=== PATIENT | male | born 1950 | race Caucasian/White ===

== ENCOUNTER 2020-04-01 21:37 | Inpatient (IN) | payer MEDICARE, OTHER ==
[2020-04-01] MEDS ORDERED: Sodium Chloride 0.9% 1,000 ML IV ONE (21:56)
--- NOTE | 2020-04-01 22:23 | EDM.PDOC ---
ED HPI GENERAL MEDICAL PROBLEM - General Chief Complaint: Abdominal Pain Stated Complaint: abdominal pain Time Seen by Provider: 04/01/20 22:00 Source of Information: Reports: Patient, EMS History Limitations: Reports: No Limitations - History of Present Illness INITIAL COMMENTS - FREE TEXT/NARRATIVE: 69 YO WM PRESENTS TO ER COMPLAINING OF LOWER ABDOMINAL PAIN WHICH BEGAN THIS AM. PT WAS SEEN IN CLINIC AND WAS SENT TO [facility] FOR CT ABD/PELVIS. CT REVEALED PROSTATITIS AND RENAL CYST. GALLBLADDER, APPENDIX AND BOWEL WERE ALL WNL. PT WAS FOUND TO HAVE AN ELEVATED WBC'S ON LABS WHICH WERE DONE IN THE CLINIC. PT REPORTS DYSURIA WITH URINARY FREQUENCY AND LOW BACK PAIN. PT DENIES FEVER/CHILLS, NO NAUSEA/VOMITING. PT HAD A COVID TEST IN CLINIC WHICH WAS NEGATIVE. Onset: Today Duration: Day(s): (1) Location: Reports: Abdomen Quality: Reports: Ache Severity: Mild Improves with: Reports: None Worsens with: Reports: None Associated Symptoms: Reports: Fever/Chills Abdomen Pain Score (Numeric/FACES): 10 - Related Data Allergies Allergy/AdvReac Type Severity Reaction Status Date / Time bromfenac Allergy Cannot Verified 04/01/20 22:02 Remember minocycline Allergy Cannot Verified 04/01/20 22:02 Remember Social & Family History - Tobacco Use Tobacco Use Status *Q: Never Tobacco User - Recreational Drug Use Recreational Drug Use: No ED ROS GENERAL - Review of Systems Review Of Systems: See Below Constitutional: Reports: Fever, Chills, Malaise Respiratory: Reports: Cough Cardiovascular: Reports: No Symptoms Endocrine: Reports: No Symptoms GI/Abdominal: Reports: Abdominal Pain : Reports: Dysuria, Frequency Musculoskeletal: Reports: No Symptoms Skin: Reports: No Symptoms Neurological: Reports: No Symptoms ED EXAM, GI/ABD - Physical Exam Exam: See Below Exam Limited By: No Limitations General Appearance: Alert, WD/WN, No Apparent Distress Respiratory/Chest: No Respiratory Distress, Lungs Clear, Normal Breath Sounds, No Accessory Muscle Use, Chest Non-Tender Cardiovascular: Normal Peripheral Pulses, Regular Rate, Rhythm, No Edema, No Gallop, No JVD, No Murmur, No Rub GI/Abdominal Exam: Normal Bowel Sounds, Soft, No Organomegaly, No Distention, No Abnormal Bruit, No Mass, Pelvis Stable, Tender (SUPRAPUBIC) Back Exam: Full Range of Motion, CVA Tenderness (L), CVA Tenderness (R) Extremities: Normal Inspection, Normal Range of Motion, Non-Tender, Normal Capillary Refill, No Pedal Edema Neurological: Alert, Oriented, CN II-XII Intact, Normal Cognition, Normal Gait, No Motor/Sensory Deficits Psychiatric: Normal Affect, Normal Mood Skin Exam: Warm, Dry, Intact, Normal Color, No Rash Lymphatic: No Adenopathy Course - Vital Signs Last Recorded V/S: Last Vital Signs Temp 100.0 F 04/01/20 21:49 Pulse 102 H 04/01/20 22:35 Resp 14 04/01/20 22:35 BP 125/83 04/01/20 22:35 Pulse Ox 94 L 04/01/20 22:35 - Orders/Labs/Meds Orders: Active Orders 24 hr Category Date Time Status Chest 2V [CR] Stat Exams 04/01/20 22:26 Ordered CORONAVIRUS COVID-19 RAPID [MOLEC] Stat Lab 04/01/20 22:40 Ordered CULTURE BLOOD [BC] Stat Lab 04/01/20 22:26 Ordered CULTURE BLOOD [BC] Stat Lab 04/01/20 22:26 Ordered UA W/MICROSCOPIC [URIN] Stat Lab 04/01/20 22:23 Results Sodium Chloride 0.9% [Normal Saline] 1,000 ml Med 04/01/20 21:56 Active IV .BOLUS Blood Culture x2 Reflex Set [OM.PC] Stat Oth 04/01/20 22:26 Ordered Medication Orders Sodium Chloride (Normal Saline) 1,000 mls @ 999 mls/hr IV .BOLUS ONE Stop: 04/01/20 22:56 Last Admin: 04/01/20 22:13 Dose: 999 mls/hr Documented by: AYLEEN Labs: Laboratory Tests 04/01/20 04/01/20 04/01/20 Range/Units 22:05 22:05 22:05 WBC 24.88 H (5.00-10.00) 10^3/uL RBC 4.63 (4.50-6.00) 10^6/uL Hgb 14.4 (13.0-17.0) g/dL Hct 43.0 (40.0-52.0) % MCV 92.9 H (82.0-92.0) fL MCH 31.1 H (27.0-31.0) pg MCHC 33.5 (32.0-36.0) g/dL RDW 13.9 (11.5-14.5) % Plt Count 244 (150-400) 10^3/uL MPV 9.0 (7.4-10.4) fL Immature Gran % (Auto) 0.4 (0.0-5.0) % Neut % (Auto) 85.4 H (50.0-70.0) % Lymph % (Auto) 5.1 L (20.0-40.0) % [place] % (Auto) 8.9 H (2.0-8.0) % Eos % (Auto) 0.0 L (1.0-3.0) % Baso % (Auto) 0.2 (0.0-1.0) % Neut # (Auto) 21.27 H (2.50-7.00) 10^3/uL Lymph # (Auto) 1.27 (1.00-4.00) 10^3/uL [place] # (Auto) 2.21 H (0.10-0.80) 10^3/uL Eos # (Auto) 0.00 L (0.10-0.30) 10^3/uL Baso # (Auto) 0.04 (0.00-0.10) 10^3/uL Immature Gran # (Auto) 0.09 (0.00-0.50) 10^3/uL Sodium 137 (136-145) mmol/L Potassium 4.5 (3.5-5.1) mmol/L Chloride 103 (98-107) mmol/L Carbon Dioxide 24.8 (21.0-32.0) mmol/L Anion Gap 13.7 (5-15) mmol/L BUN 17 (7-18) mg/dL Creatinine 0.94 (0.51-1.17) mg/dL Est Cr Clr Drug Dosing 83.70 mL/min Estimated GFR (MDRD) > 60 mL/min Glucose 130 (70-140) mg/dL Lactic Acid 1.8 (0.4-2.0) mmol/L Calcium 10.5 H (8.7-10.3) mg/dL Total Bilirubin 1.1 H (0.2-1.0) mg/dL AST 21 (15-37) U/L ALT 28 (14-63) U/L Alkaline Phosphatase 108 (46-116) U/L Total Protein 7.3 (6.4-8.2) g/dL Albumin 3.79 (3.40-5.00) g/dL Lipase 84 (73-393) U/L Urine Color (YELLOW) Urine Appearance (CLEAR) Urine pH (5.0-9.0) Ur Specific [place] (1.005-1.030) Urine Protein (NEGATIVE) mg/dL Urine Glucose (UA) (NEGATIVE) mg/dL Urine Ketones (NEGATIVE) mg/dL Urine Occult Blood (NEGATIVE) Urine Nitrite (NEGATIVE) Urine Bilirubin (NEGATIVE) Urine Urobilinogen (0.2-1.0) E.U./dL Ur Leukocyte Esterase (NEGATIVE) 04/01/20 Range/Units 22:23 WBC (5.00-10.00) 10^3/uL RBC (4.50-6.00) 10^6/uL Hgb (13.0-17.0) g/dL Hct (40.0-52.0) % MCV (82.0-92.0) fL MCH (27.0-31.0) pg MCHC (32.0-36.0) g/dL RDW (11.5-14.5) % Plt Count (150-400) 10^3/uL MPV (7.4-10.4) fL Immature Gran % (Auto) (0.0-5.0) % Neut % (Auto) (50.0-70.0) % Lymph % (Auto) (20.0-40.0) % [place] % (Auto) (2.0-8.0) % Eos % (Auto) (1.0-3.0) % Baso % (Auto) (0.0-1.0) % Neut # (Auto) (2.50-7.00) 10^3/uL Lymph # (Auto) (1.00-4.00) 10^3/uL [place] # (Auto) (0.10-0.80) 10^3/uL Eos # (Auto) (0.10-0.30) 10^3/uL Baso # (Auto) (0.00-0.10) 10^3/uL Immature Gran # (Auto) (0.00-0.50) 10^3/uL Sodium (136-145) mmol/L Potassium (3.5-5.1) mmol/L Chloride (98-107) mmol/L Carbon Dioxide (21.0-32.0) mmol/L Anion Gap (5-15) mmol/L BUN (7-18) mg/dL Creatinine (0.51-1.17) mg/dL Est Cr Clr Drug Dosing mL/min Estimated GFR (MDRD) mL/min Glucose (70-140) mg/dL Lactic Acid (0.4-2.0) mmol/L Calcium (8.7-10.3) mg/dL Total Bilirubin (0.2-1.0) mg/dL AST (15-37) U/L ALT (14-63) U/L Alkaline Phosphatase (46-116) U/L Total Protein (6.4-8.2) g/dL Albumin (3.40-5.00) g/dL Lipase (73-393) U/L Urine Color Yellow (YELLOW) Urine Appearance Cloudy H (CLEAR) Urine pH 5.5 (5.0-9.0) Ur Specific [place] 1.015 (1.005-1.030) Urine Protein 30 H (NEGATIVE) mg/dL Urine Glucose (UA) Negative (NEGATIVE) mg/dL Urine Ketones 40 H (NEGATIVE) mg/dL Urine Occult Blood Moderate H (NEGATIVE) Urine Nitrite Positive H (NEGATIVE) Urine Bilirubin Negative (NEGATIVE) Urine Urobilinogen 0.2 (0.2-1.0) E.U./dL Ur Leukocyte Esterase Small H (NEGATIVE) Meds: Medications Generic Name Dose Route Start Last Admin Trade Name Freq PRN Reason Stop Dose Admin Sodium Chloride 1,000 mls @ 999 mls/hr 04/01/20 21:56 04/01/20 22:13 Normal Saline IV 04/01/20 22:56 999 mls/hr .BOLUS ONE Administration Discontinued Medications Generic Name Dose Route Start Last Admin Trade Name Freq PRN Reason Stop Dose Admin Ceftriaxone Sodium 1 gm 04/01/20 22:34 Rocephin IVPUSH 04/01/20 22:35 ONETIME ONE Departure - Departure Time of Disposition: 23:06 Disposition: Admitted As Inpatient 68 Condition: Fair Clinical Impression: Pyelonephritis - Discharge Information Forms: ED Department Discharge Sepsis Event Note (ED) - Evaluation Sepsis Screening Result: Possible Sepsis Risk - Focused Exam Vital Signs: Vital Signs Temp Pulse Resp BP Pulse Ox 04/01/20 22:35 102 H 14 125/83 94 L 04/01/20 22:29 100 18 112/75 94 L 04/01/20 21:49 100.0 F 107 H 18 119/72 94 L - My Orders Last 24 Hours: My Active Orders 04/01/20 21:56 Sodium Chloride 0.9% [Normal Saline] 1,000 ml IV .BOLUS 04/01/20 22:23 UA W/MICROSCOPIC [URIN] Stat 04/01/20 22:26 Chest 2V [CR] Stat CULTURE BLOOD [BC] Stat CULTURE BLOOD [BC] Stat Blood Culture x2 Reflex Set [OM.PC] Stat 04/01/20 22:40 CORONAVIRUS COVID-19 RAPID [MOLEC] Stat - Assessment/Plan Last 24 Hours: My Active Orders 04/01/20 21:56 Sodium Chloride 0.9% [Normal Saline] 1,000 ml IV .BOLUS 04/01/20 22:23 UA W/MICROSCOPIC [URIN] Stat 04/01/20 22:26 Chest 2V [CR] Stat CULTURE BLOOD [BC] Stat CULTURE BLOOD [BC] Stat Blood Culture x2 Reflex Set [OM.PC] Stat 04/01/20 22:40 CORONAVIRUS COVID-19 RAPID [MOLEC] Stat Assessment:: 1. PYELONEPHRITIS 2. LEUKOCYTOSIS 3. FEVER 4. PROSTATITIS Plan: 1. ADMIT TO MEDICINE- DR SOLA BARRERA- ADMISSION ORDERS PER MEDICINE 2. URINE/BLOOD CULTURES 3. ROCEPHIN 1G IV QD 4. REPEAT LABS IN AM
[2020-04-01] MEDS ORDERED: cefTRIAXone 1 GM Vial IVPUSH ONE (22:34)
[2020-04-01 22:36] LABS: ANION GAP 13.7 mmol/L (5-15); CHLORIDE,CL 103 mmol/L (98-107); SODIUM,NA 137 mmol/L (136-145)
[2020-04-01] MEDS ORDERED: Sodium Chloride 0.9% 10 ML Syringe FLUSH PRN (23:07)
[2020-04-01] MEDS ORDERED: Acetaminophen 500 MG Tab PO ONE (23:12)
[2020-04-02] MEDS: Ondansetron 4 MG/2 ML SDV IVPUSH PRN ×2 (02:47→18:34)
[2020-04-02 07:49] LABS: ANION GAP 14.2 mmol/L (5-15); CHLORIDE,CL 105 mmol/L (98-107); SODIUM,NA 138 mmol/L (136-145)
--- NOTE | 2020-04-02 08:02 | CR ---
[id number] RAD/RAD Chest PA And Lateral EXAM: RAD Chest PA And Lateral CLINICAL DATA: FEVER COMPARISON: NO PREVIOUS SIMILAR EXAM IS AVAILABLE. FINDINGS: The lungs are clear Neurologic stimulators are seen The cardiac silhouette is slightly prominent IMPRESSION: NO PNEUMONIA Edy Nails MD 04/02/20 0801 Thank you for allowing us to participate in the care of your patient.
[2020-04-02] MEDS: Sodium Chloride 0.9% 1,000 ML IV SCH ×3 (08:12→16:27)
[2020-04-02] MEDS ORDERED: cefTRIAXone 1 GM Vial IVPUSH SCH (09:00)
--- NOTE | 2020-04-02 10:20 | PCM.HP.2 ---
H&P History of Present Illness - General Date of Service: 04/02/20 Admit Problem/Dx: Admission Diagnosis/Problem Admission Diagnosis/Problem Pyelonephritis Abdomen Pain Score (Numeric/FACES): 10 - Related Data Allergies/Adverse Reactions: Allergies Allergy/AdvReac Type Severity Reaction Status Date / Time bromfenac Allergy Cannot Verified 04/01/20 22:02 Remember minocycline Allergy Cannot Verified 04/01/20 22:02 Remember Home Medications: Home Meds Hydrocortisone [Hydrocortisone 2.5% Crm] 1 applic TOP BID 04/02/20 [History] Ibuprofen [Advil] 200 mg PO Q4H PRN 04/02/20 [History] Multivitamin 1 tab PO DAILY 04/02/20 [History] bisacodyL [Dulcolax] 10 mg PO BEDTIME 04/02/20 [History] polyethylene glycoL 3350 [MiraLAX] 17 gm PO DAILY 04/02/20 [History] Past Medical History - Past Surgical History Neurological Surgical History: Reports: Other (See Below) Other Neurological Surgeries/Procedures: Implant X2 to help with tremors Social & Family History - Tobacco Use Tobacco Use Status *Q: Never Tobacco User - Recreational Drug Use Recreational Drug Use: No H&P Review of Systems - Review of Systems: Review Of Systems: See Below General: Reports: Fever, Chills, Weakness. Denies: Decreased Appetite HEENT: Reports: No Symptoms Pulmonary: Reports: No Symptoms Cardiovascular: Reports: No Symptoms Gastrointestinal: Reports: Constipation. Denies: Abdominal Pain, Diarrhea, Distension, Nausea Genitourinary: Reports: Dysuria, Frequency, Burning, Pain, Hematuria. Denies: Urgency, Incontinence Musculoskeletal: Reports: No Symptoms Skin: Reports: Dryness Neurological: Reports: Pre-Existing Deficit. Denies: Confusion Hematologic/Lymphatic: Reports: No Symptoms Immunologic: Reports: No Symptoms Exam - Exam Exam: See Below - Vital Signs Vital Signs: Last Vital Signs Temp 98.7 F 04/02/20 06:40 Pulse 105 H 04/02/20 06:40 Resp 16 04/02/20 06:40 BP 106/62 04/02/20 06:40 Pulse Ox 94 L 04/02/20 06:40 Weight: 213 lb 5 oz - Exam General: Alert, Oriented, Cooperative HEENT: No: Mucosa Moist & [place] Lungs: Clear to Auscultation, Normal Respiratory Effort Cardiovascular: Regular Rate, Regular Rhythm GI/Abdominal Exam: Normal Bowel Sounds. No: Guarding, Rigid, Rebound (Male) Exam: Other (Palpation of prostate during digital rectal exam tender painful). No: Normal Prostate Rectal (Males) Exam: Normal Rectal Tone, Tenderness. No: Prostate Normal, Fecal Impaction, Prostate Nodule Back Exam: CVA Tenderness (R) (Mild right-sided CVA). No: CVA Tenderness (L) Extremities: No: Pedal Edema Skin: Dry, Other (Left face however ) Neurological: Cranial Nerves Intact, Reflexes Equal Bilateral Neuro Extensive - Mental Status: Alert, Oriented x3, Normal Mood/Affect, Other (Slight cognitive impairment at times however chronic) Psychiatric: Alert, Normal Affect - Patient Data Lab Results Last 24 hrs: Laboratory Results - last 24 hr 04/01/20 04/01/20 04/01/20 Range/Units 22:05 22:05 22:05 WBC 24.88 H (5.00-10.00) 10^3/uL RBC 4.63 (4.50-6.00) 10^6/uL Hgb 14.4 (13.0-17.0) g/dL Hct 43.0 (40.0-52.0) % MCV 92.9 H (82.0-92.0) fL MCH 31.1 H (27.0-31.0) pg MCHC 33.5 (32.0-36.0) g/dL RDW 13.9 (11.5-14.5) % Plt Count 244 (150-400) 10^3/uL MPV 9.0 (7.4-10.4) fL Immature Gran % (Auto) 0.4 (0.0-5.0) % Neut % (Auto) 85.4 H (50.0-70.0) % Lymph % (Auto) 5.1 L (20.0-40.0) % [place] % (Auto) 8.9 H (2.0-8.0) % Eos % (Auto) 0.0 L (1.0-3.0) % Baso % (Auto) 0.2 (0.0-1.0) % Neut # (Auto) 21.27 H (2.50-7.00) 10^3/uL Lymph # (Auto) 1.27 (1.00-4.00) 10^3/uL [place] # (Auto) 2.21 H (0.10-0.80) 10^3/uL Eos # (Auto) 0.00 L (0.10-0.30) 10^3/uL Baso # (Auto) 0.04 (0.00-0.10) 10^3/uL Immature Gran # (Auto) 0.09 (0.00-0.50) 10^3/uL Add Manual Diff Neutrophils % (Manual) (50-70) % Band Neutrophils % (4-12) % Lymphocytes % (Manual) (20-40) % Monocytes % (Manual) (2-8) % Absolute Neutrophils Lymphocytes # (Manual) Monocytes # (Manual) Sodium 137 (136-145) mmol/L Potassium 4.5 (3.5-5.1) mmol/L Chloride 103 (98-107) mmol/L Carbon Dioxide 24.8 (21.0-32.0) mmol/L Anion Gap 13.7 (5-15) mmol/L BUN 17 (7-18) mg/dL Creatinine 0.94 (0.51-1.17) mg/dL Est Cr Clr Drug Dosing 83.70 mL/min Estimated GFR (MDRD) > 60 mL/min Glucose 130 (70-140) mg/dL Lactic Acid 1.8 (0.4-2.0) mmol/L Calcium 10.5 H (8.7-10.3) mg/dL Total Bilirubin 1.1 H (0.2-1.0) mg/dL AST 21 (15-37) U/L ALT 28 (14-63) U/L Alkaline Phosphatase 108 (46-116) U/L Total Protein 7.3 (6.4-8.2) g/dL Albumin 3.79 (3.40-5.00) g/dL Lipase 84 (73-393) U/L Specimen Type Urine Color (YELLOW) Urine Appearance (CLEAR) Urine pH (5.0-9.0) Ur Specific [place] (1.005-1.030) Urine Protein (NEGATIVE) mg/dL Urine Glucose (UA) (NEGATIVE) mg/dL Urine Ketones (NEGATIVE) mg/dL Urine Occult Blood (NEGATIVE) Urine Nitrite (NEGATIVE) Urine Bilirubin (NEGATIVE) Urine Urobilinogen (0.2-1.0) E.U./dL Ur Leukocyte Esterase (NEGATIVE) Urine RBC (0-5) /HPF Urine WBC (0-5) /HPF Ur Epithelial Cells /LPF Other Crystals /HPF Urine Bacteria (NONE TO FEW) /HPF SARS CoV-2 RNA Rapid ROXANA (NEGATIVE) 04/01/20 04/01/20 04/02/20 Range/Units 22:23 22:42 07:25 WBC 29.65 H (5.00-10.00) 10^3/uL RBC 4.14 L (4.50-6.00) 10^6/uL Hgb 12.9 L D (13.0-17.0) g/dL Hct 38.9 L (40.0-52.0) % MCV 94.0 H (82.0-92.0) fL MCH 31.2 H (27.0-31.0) pg MCHC 33.2 (32.0-36.0) g/dL RDW 14.2 (11.5-14.5) % Plt Count 234 (150-400) 10^3/uL MPV 9.9 (7.4-10.4) fL Immature Gran % (Auto) (0.0-5.0) % Neut % (Auto) (50.0-70.0) % Lymph % (Auto) (20.0-40.0) % [place] % (Auto) (2.0-8.0) % Eos % (Auto) (1.0-3.0) % Baso % (Auto) (0.0-1.0) % Neut # (Auto) (2.50-7.00) 10^3/uL Lymph # (Auto) (1.00-4.00) 10^3/uL [place] # (Auto) (0.10-0.80) 10^3/uL Eos # (Auto) (0.10-0.30) 10^3/uL Baso # (Auto) (0.00-0.10) 10^3/uL Immature Gran # (Auto) (0.00-0.50) 10^3/uL Add Manual Diff Yes Neutrophils % (Manual) 92 H (50-70) % Band Neutrophils % 3 L (4-12) % Lymphocytes % (Manual) 2 L (20-40) % Monocytes % (Manual) 3 (2-8) % Absolute Neutrophils 28.1675 Lymphocytes # (Manual) 0.5930 Monocytes # (Manual) 0.8895 Sodium (136-145) mmol/L Potassium (3.5-5.1) mmol/L Chloride (98-107) mmol/L Carbon Dioxide (21.0-32.0) mmol/L Anion Gap (5-15) mmol/L BUN (7-18) mg/dL Creatinine (0.51-1.17) mg/dL Est Cr Clr Drug Dosing mL/min Estimated GFR (MDRD) mL/min Glucose (70-140) mg/dL Lactic Acid (0.4-2.0) mmol/L Calcium (8.7-10.3) mg/dL Total Bilirubin (0.2-1.0) mg/dL AST (15-37) U/L ALT (14-63) U/L Alkaline Phosphatase (46-116) U/L Total Protein (6.4-8.2) g/dL Albumin (3.40-5.00) g/dL Lipase (73-393) U/L Specimen Type Urinvoid Urine Color Yellow (YELLOW) Urine Appearance Cloudy H (CLEAR) Urine pH 5.5 (5.0-9.0) Ur Specific [place] 1.015 (1.005-1.030) Urine Protein 30 H (NEGATIVE) mg/dL Urine Glucose (UA) Negative (NEGATIVE) mg/dL Urine Ketones 40 H (NEGATIVE) mg/dL Urine Occult Blood Moderate H (NEGATIVE) Urine Nitrite Positive H (NEGATIVE) Urine Bilirubin Negative (NEGATIVE) Urine Urobilinogen 0.2 (0.2-1.0) E.U./dL Ur Leukocyte Esterase Small H (NEGATIVE) Urine RBC 0-5 (0-5) /HPF Urine WBC >100 H (0-5) /HPF Ur Epithelial Cells Few /LPF Other Crystals See note /HPF Urine Bacteria Few (NONE TO FEW) /HPF SARS CoV-2 RNA Rapid ROXANA Negative (NEGATIVE) 04/02/20 Range/Units 07:25 WBC (5.00-10.00) 10^3/uL RBC (4.50-6.00) 10^6/uL Hgb (13.0-17.0) g/dL Hct (40.0-52.0) % MCV (82.0-92.0) fL MCH (27.0-31.0) pg MCHC (32.0-36.0) g/dL RDW (11.5-14.5) % Plt Count (150-400) 10^3/uL MPV (7.4-10.4) fL Immature Gran % (Auto) (0.0-5.0) % Neut % (Auto) (50.0-70.0) % Lymph % (Auto) (20.0-40.0) % [place] % (Auto) (2.0-8.0) % Eos % (Auto) (1.0-3.0) % Baso % (Auto) (0.0-1.0) % Neut # (Auto) (2.50-7.00) 10^3/uL Lymph # (Auto) (1.00-4.00) 10^3/uL [place] # (Auto) (0.10-0.80) 10^3/uL Eos # (Auto) (0.10-0.30) 10^3/uL Baso # (Auto) (0.00-0.10) 10^3/uL Immature Gran # (Auto) (0.00-0.50) 10^3/uL Add Manual Diff Neutrophils % (Manual) (50-70) % Band Neutrophils % (4-12) % Lymphocytes % (Manual) (20-40) % Monocytes % (Manual) (2-8) % Absolute Neutrophils Lymphocytes # (Manual) Monocytes # (Manual) Sodium 138 (136-145) mmol/L Potassium 4.0 (3.5-5.1) mmol/L Chloride 105 (98-107) mmol/L Carbon Dioxide 22.8 (21.0-32.0) mmol/L Anion Gap 14.2 (5-15) mmol/L BUN 16 (7-18) mg/dL Creatinine 0.94 (0.51-1.17) mg/dL Est Cr Clr Drug Dosing 83.70 mL/min Estimated GFR (MDRD) > 60 mL/min Glucose 122 (70-140) mg/dL Lactic Acid (0.4-2.0) mmol/L Calcium 9.6 (8.7-10.3) mg/dL Total Bilirubin (0.2-1.0) mg/dL AST (15-37) U/L ALT (14-63) U/L Alkaline Phosphatase (46-116) U/L Total Protein (6.4-8.2) g/dL Albumin (3.40-5.00) g/dL Lipase (73-393) U/L Specimen Type Urine Color (YELLOW) Urine Appearance (CLEAR) Urine pH (5.0-9.0) Ur Specific [place] (1.005-1.030) Urine Protein (NEGATIVE) mg/dL Urine Glucose (UA) (NEGATIVE) mg/dL Urine Ketones (NEGATIVE) mg/dL Urine Occult Blood (NEGATIVE) Urine Nitrite (NEGATIVE) Urine Bilirubin (NEGATIVE) Urine Urobilinogen (0.2-1.0) E.U./dL Ur Leukocyte Esterase (NEGATIVE) Urine RBC (0-5) /HPF Urine WBC (0-5) /HPF Ur Epithelial Cells /LPF Other Crystals /HPF Urine Bacteria (NONE TO FEW) /HPF SARS CoV-2 RNA Rapid ROXANA (NEGATIVE) Result Diagrams: 04/02/20 07:25 04/02/20 07:25 Sepsis Event Note - Evaluation Sepsis Screening Result: Sepsis Risk - Focused Exam Vital Signs: Vital Signs Temp Temp Temp Pulse Resp BP BP 04/02/20 06:40 98.7 F 105 H 16 04/02/20 02:50 98.9 F 120 H 20 141/72 H 04/02/20 00:06 98.7 F 119 H 20 92/59 L 04/01/20 23:49 98.7 F 04/01/20 23:31 155 H 19 111/82 04/01/20 23:22 134 H 22 H 124/66 04/01/20 23:19 102.3 F H 04/01/20 23:13 102.3 F H 100.4 F 04/01/20 23:01 148 H 36 H 94/60 04/01/20 22:35 102 H 14 125/83 04/01/20 22:29 100 18 112/75 BP Pulse Ox Pulse Ox 04/02/20 06:40 106/62 94 L 94 L 04/02/20 02:50 96 04/02/20 00:06 95 04/01/20 23:49 04/01/20 23:31 04/01/20 23:22 95 04/01/20 23:19 04/01/20 23:13 04/01/20 23:01 04/01/20 22:35 94 L 04/01/20 22:29 94 L Problem List Initiated/Reviewed/Updated: Yes Orders Last 24hrs: Active Orders 24 hr Category Date Time Status Patient Status [ADT] Routine ADT 04/01/20 23:07 Active Oxygen Therapy [RC] .PRN Care 04/01/20 23:07 Active Peripheral IV Care [RC] . DIRECTED Care 04/01/20 23:09 Active Up With Assistance [RC] ASDIRECTED Care 04/01/20 23:07 Active VTE/DVT Education [RC] DAILY Care 04/01/20 23:07 Active Vital Signs [RC] 03,07,11,15,19,23 Care 04/01/20 23:07 Active Heart Healthy Diet [DIET] Diet 04/02/20 Breakfast Active CULTURE BLOOD [BC] Stat Lab 04/01/20 22:35 Received CULTURE BLOOD [BC] Stat Lab 04/01/20 22:45 Received CULTURE URINE [RM] Stat Lab 04/01/20 22:23 Received Acetaminophen [TylenoL] Med 04/01/20 23:07 Active 650 mg PO Q4H PRN Ondansetron [Zofran] Med 04/02/20 02:40 Active 4 mg IVPUSH Q6H PRN Sodium Chloride 0.9% [Normal Saline] 1,000 ml Med 04/01/20 23:15 Active IV ASDIRECTED Sodium Chloride 0.9% [Saline Flush] Med 04/01/20 23:07 Active 10 ml FLUSH Q8HR PRN cefTRIAXone [Rocephin] Med 04/02/20 09:00 Active 1 gm IVPUSH Q24H Peripheral IV Insertion Adult [OM.PC] Routine Oth 04/01/20 23:07 Ordered Resuscitation Status Routine Resus Stat 04/01/20 23:07 Ordered Medication Orders Acetaminophen (Tylenol) 650 mg PO Q4H PRN PRN Reason: Pain (Mild 1-3)/fever Ceftriaxone Sodium (Rocephin) 1 gm IVPUSH Q24H [facility] Last Admin: 04/02/20 08:20 Dose: 1 gm Documented by: RANDY Sodium Chloride (Normal Saline) 1,000 mls @ 125 mls/hr IV ASDIRECTED [facility] Last Admin: 04/02/20 08:12 Dose: 125 mls/hr Documented by: Infusion: 04/02/20 08:00 Dose: 125 mls/hr Documented by: Admin: 04/02/20 00:00 Dose: 125 mls/hr Documented by: AVILA Ondansetron HCl (Zofran) 4 mg IVPUSH Q6H PRN PRN Reason: Nausea/Vomiting Last Admin: 04/02/20 02:47 Dose: 4 mg Documented by: AVILA Sodium Chloride (Saline Flush) 10 ml FLUSH Q8HR PRN PRN Reason: keep vein open Assessment/Plan Comment:: History of present illness Mr Almanza is a 69-year-old male gentleman that was admitted through the ED due to lower abdominal pain. Started having abdominal pain the morning of admission and had been evaluated in an [facility] as he had been having problems with constipation about a month prior with a last BM that was noted last week, patient was sent to [facility] for abdominal pelvis CT which revealed prostatitis and renal cyst. In the clinic setting when he was seen he had no abdominal pain and he had taken a stool softener along with a laxative. It was noted for him to have a white count of 21.7 with 90% neutrophils however electrolytes BUN/creatinine were all normal. 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 Neg for hydronephrosis and hydroureter --Rocephin in the ED --Lactic acid normal Hospital course to date 04/02/2020; increasing WBC to approximately 30,000 with increasing neutrophilia, digital rectal exam this morning very tender prostate, perineal pain, and cloudy urine noted. Antibiotics were changed from Rocephin to ciprofloxacin as doubtful pyelonephritis more likely prostatitis in nature. Lactate this morning on rounds demonstrate sepsis with lactic acid of 2.3, electrolytes normal, febrile. qSOFA 1/ Primary hospital problems --Prostatitis, acute bacterial with LUTS --Sepsis Chronic problems Essential tremors Learning/Development deficits Disposition/overall plan --Change to inpatient status as the need for ongoing antibiotics and close monitoring due to sepsis and prostatitis --Change antibiotics from Rocephin to ciprofloxacin --IV fluids today 125 cc/h --Labs in am --PPx, LMWH --Monitor closely for complications of his infection such as shock. Notify on- call provider stat for trending low blood pressure with MAP <68, turn mental status, confusion, increasing in respiratory rate, hypoxia, dizziness, tachycardia. Low threshold for norepinephrine
[2020-04-02] MEDS: Acetaminophen 325 MG Tab PO PRN ×2 (11:28→18:38)
[2020-04-02] MEDS: Ciprofloxacin in D5W 400 MG in Premix Bag 1 BAG IV SCH ×4 (12:41→23:22)
[2020-04-02] MEDS: Enoxaparin 40 MG/0.4 ML Syringe SUBCUT SCH (14:26)
[2020-04-03] MEDS ORDERED: Haloperidol Lactate 5 MG/ML SDV IM ONE (00:06)
[2020-04-03] MEDS: Sodium Chloride 0.9% 1,000 ML IV SCH ×3 (01:56→17:42)
[2020-04-03] MEDS: Acetaminophen 325 MG Tab PO PRN (03:54)
[2020-04-03 07:40] LABS: ANION GAP 11.2 mmol/L (5-15); CHLORIDE,CL 105 mmol/L (98-107); SODIUM,NA 138 mmol/L (136-145)
--- NOTE | 2020-04-03 11:20 | PCM.PN ---
- General Info Date of Service: 04/03/20 Functional Status: Reports: Pain Controlled, Tolerating Diet, Ambulating - Review of Systems General: Denies: Fever (No fever past 12 hours) HEENT: Reports: No Symptoms Pulmonary: Reports: No Symptoms Cardiovascular: Reports: No Symptoms Gastrointestinal: Denies: Abdominal Pain, Constipation, Diarrhea, Nausea, Vomiting Genitourinary: Denies: Dysuria (No longer dysuria ), Incontinence, Hematuria, Retention, Flank Pain Musculoskeletal: Reports: No Symptoms Skin: Reports: No Symptoms Neurological: Denies: Confusion, Gait Disturbance Psychiatric: Denies: Agitation - Patient Data Vitals - Most Recent: Last Vital Signs Temp 98.3 F 04/03/20 06:45 Pulse 85 04/03/20 06:45 Resp 16 04/03/20 06:45 BP 106/64 04/03/20 06:45 Pulse Ox 93 L 04/03/20 10:30 Weight - Most Recent: 213 lb 5 oz I&O - Last 24 Hours: Intake & Output 04/02/20 04/03/20 04/03/20 22:59 06:59 14:59 Intake Total 1219 1492 Balance 1219 1492 Lab Results Last 24 Hours: Laboratory Results - last 24 hr 04/02/20 04/03/20 04/03/20 Range/Units 11:25 07:15 07:15 WBC 27.86 H (5.00-10.00) 10^3/uL RBC 3.86 L (4.50-6.00) 10^6/uL Hgb 12.1 L (13.0-17.0) g/dL Hct 36.4 L (40.0-52.0) % MCV 94.3 H (82.0-92.0) fL MCH 31.3 H (27.0-31.0) pg MCHC 33.2 (32.0-36.0) g/dL RDW 14.3 (11.5-14.5) % Plt Count 198 (150-400) 10^3/uL MPV 9.4 (7.4-10.4) fL Add Manual Diff Yes Neutrophils % (Manual) 90 H (50-70) % Band Neutrophils % 3 L (4-12) % Lymphocytes % (Manual) 2 L (20-40) % Monocytes % (Manual) 5 (2-8) % Absolute Neutrophils 25.9098 Lymphocytes # (Manual) 0.5572 Monocytes # (Manual) 1.3930 Sodium (136-145) mmol/L Potassium (3.5-5.1) mmol/L Chloride (98-107) mmol/L Carbon Dioxide (21.0-32.0) mmol/L Anion Gap (5-15) mmol/L BUN (7-18) mg/dL Creatinine (0.51-1.17) mg/dL Est Cr Clr Drug Dosing mL/min Estimated GFR (MDRD) mL/min Glucose (70-140) mg/dL Lactic Acid 2.3 H 1.8 (0.4-2.0) mmol/L Calcium (8.7-10.3) mg/dL 04/03/20 Range/Units 07:15 WBC (5.00-10.00) 10^3/uL RBC (4.50-6.00) 10^6/uL Hgb (13.0-17.0) g/dL Hct (40.0-52.0) % MCV (82.0-92.0) fL MCH (27.0-31.0) pg MCHC (32.0-36.0) g/dL RDW (11.5-14.5) % Plt Count (150-400) 10^3/uL MPV (7.4-10.4) fL Add Manual Diff Neutrophils % (Manual) (50-70) % Band Neutrophils % (4-12) % Lymphocytes % (Manual) (20-40) % Monocytes % (Manual) (2-8) % Absolute Neutrophils Lymphocytes # (Manual) Monocytes # (Manual) Sodium 138 (136-145) mmol/L Potassium 4.5 (3.5-5.1) mmol/L Chloride 105 (98-107) mmol/L Carbon Dioxide 26.3 (21.0-32.0) mmol/L Anion Gap 11.2 (5-15) mmol/L BUN 16 (7-18) mg/dL Creatinine 0.83 (0.51-1.17) mg/dL Est Cr Clr Drug Dosing 94.79 mL/min Estimated GFR (MDRD) > 60 mL/min Glucose 115 (70-140) mg/dL Lactic Acid (0.4-2.0) mmol/L Calcium 10.0 (8.7-10.3) mg/dL Nacho Results Last 24 Hours: Microbiology 04/01/20 22:35 Aerobic Blood Culture - Preliminary Blood - Arm, Right NO GROWTH AFTER 1 DAY Anaerobic Blood Culture - Preliminary NO GROWTH AFTER 1 DAY 04/01/20 22:45 Aerobic Blood Culture - Preliminary Blood - Arm, Left NO GROWTH AFTER 1 DAY Anaerobic Blood Culture - Preliminary NO GROWTH AFTER 1 DAY 04/01/20 22:23 Urine Culture - Final Urine, Voided Med Orders - Current: Current Medications Acetaminophen (Tylenol) 650 mg PO Q4H PRN PRN Reason: Pain (Mild 1-3)/fever Last Admin: 04/03/20 03:54 Dose: 650 mg Documented by: Enoxaparin Sodium (Lovenox) 40 mg SUBCUT Q24H ON LICENSE OF [facility] Last Admin: 04/02/20 14:26 Dose: 40 mg Documented by: Sodium Chloride (Normal Saline) 1,000 mls @ 125 mls/hr IV ASDIRECTED ON LICENSE OF [facility] Last Admin: 04/03/20 01:56 Dose: 125 mls/hr Documented by: Ciprofloxacin/Dextrose 400 mg/ (Premix) 200 mls @ 200 mls/hr IV Q12H ON LICENSE OF [facility] Last Admin: 04/02/20 23:22 Dose: 200 mls/hr Documented by: Ondansetron HCl (Zofran) 4 mg IVPUSH Q6H PRN PRN Reason: Nausea/Vomiting Last Admin: 04/02/20 18:34 Dose: 4 mg Documented by: Sodium Chloride (Saline Flush) 10 ml FLUSH Q8HR PRN PRN Reason: keep vein open Discontinued Medications Acetaminophen (Tylenol Extra Strength) 1,000 mg PO ONETIME ONE Stop: 04/01/20 23:13 Last Admin: 04/01/20 23:19 Dose: 1,000 mg Documented by: Ceftriaxone Sodium (Rocephin) 1 gm IVPUSH ONETIME ONE Stop: 04/01/20 22:35 Last Admin: 04/01/20 22:58 Dose: 1 gm Documented by: Ceftriaxone Sodium (Rocephin) 1 gm IVPUSH Q24H ON LICENSE OF [facility] Last Admin: 04/02/20 08:20 Dose: 1 gm Documented by: Sodium Chloride (Normal Saline) 1,000 mls @ 999 mls/hr IV .BOLUS ONE Stop: 04/01/20 22:56 Last Admin: 04/01/20 22:13 Dose: 999 mls/hr Documented by: - Exam General: Alert, Oriented, Cooperative Neck: Supple Lungs: Clear to Auscultation, Normal Respiratory Effort Cardiovascular: Regular Rate, Regular Rhythm GI/Abdominal Exam: Normal Bowel Sounds, Soft Extremities: No Pedal Edema Peripheral Pulses: 2+: Radial (L), 3+: Radial (R) Skin: Warm, Dry, Intact, Other (Face tanned) Neurological: No New Focal Deficit Psy/Mental Status: Alert, Normal Affect, Normal Mood Sepsis Event Note - Evaluation Sepsis Screening Result: Sepsis Risk - Focused Exam Vital Signs: Vital Signs Temp Pulse Resp BP Pulse Ox Pulse Ox 04/03/20 10:30 93 L 04/03/20 06:45 98.3 F 85 16 106/64 93 L 04/03/20 03:00 99.1 F 95 20 109/49 L 95 - Problem List Review Problem List Initiated/Reviewed/Updated: Yes - My Orders Last 24 Hours: My Active Orders 04/02/20 11:25 Blood Culture x2 Reflex Set [OM.PC] Stat 04/02/20 11:35 CULTURE BLOOD [BC] Stat 04/02/20 12:00 CULTURE BLOOD [BC] Stat Ciprofloxacin in D5W [Cipro in D5W 400 MG/200 ML] 400 mg Premix Bag 1 bag IV Q12H 04/02/20 14:00 Enoxaparin [Lovenox] 40 mg SUBCUT Q24H - Plan Plan:: History of present illness Mr Almanza is a 69-year-old male gentleman that was admitted through the ED due to lower abdominal pain. Started having abdominal pain the morning of admission and had been evaluated in an [facility] clinic as he had been having problems with constipation about a month prior with a last BM that was noted last week, patient was sent to [facility] for abdominal pelvis CT which revealed prostatitis and renal cyst. In the clinic setting when he was seen he had no abdominal pain and he had taken a stool softener along with a laxative. It was noted for him to have a white count of 21.7 with 90% neutrophils however electrolytes BUN/creatinine were all normal. 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 Neg for hydronephrosis and hydroureter --Rocephin in the ED --Lactic acid normal Hospital course to date 04/02/2020; increasing WBC to approximately 30,000 with increasing neutrophilia, digital rectal exam this morning very tender prostate, perineal pain, and cloudy urine noted. Antibiotics were changed from Rocephin to ciprofloxacin as doubtful pyelonephritis more likely prostatitis in nature. Lactate this morning on rounds demonstrate sepsis with lactic acid of 2.3, electrolytes normal, febrile. qSOFA 1/3 04/03/2020; feeling much better today no flank pain no dysuria, afebrile past 12 hours, overall appearance much improved. Yesterday changed from Rocephin to ciprofloxacin due to positive prostatitis on digital rectal exam--highly suspect source, ?ecoli, no more bothersome LUTS, no growth on BC, urine culture pending Primary hospital problems --Prostatitis, acute bacterial with improving LUTS --Sepsis Chronic problems Essential tremors Learning/Development deficits Disposition/overall plan --[facility] due to infection with high risks of septic shock, the need for ongoing antibiotics and close monitoring. --IV fluids 125 cc/h --Labs in am --PPx, LMWH --Monitor closely for complications of his infection such as shock. Notify on- call provider stat for trending low blood pressure with MAP <68, changes in mental status, confusion, increasing in respiratory rate, hypoxia, dizziness, tachycardia. Low threshold for norepinephrine if needed.
[2020-04-03] MEDS: Ciprofloxacin in D5W 400 MG in Premix Bag 1 BAG IV SCH ×4 (13:02→23:12)
[2020-04-03] MEDS: Enoxaparin 40 MG/0.4 ML Syringe SUBCUT SCH (14:26)
[2020-04-03] MEDS ORDERED: Melatonin 3 MG Tab PO PRN (21:22)
[2020-04-03] MEDS ORDERED: LORazepam 2 MG/ML SDV IVPUSH ONE (22:47)
[2020-04-04] MEDS ORDERED: Haloperidol Lactate 5 MG/ML SDV IM ONE ×3 (00:06→06:20)
[2020-04-04] MEDS ORDERED: Haloperidol Lactate 5 MG/ML SDV ONE (06:22)
[2020-04-04 07:49] LABS: ANION GAP 11.4 mmol/L (5-15); CHLORIDE,CL 104 mmol/L (98-107); SODIUM,NA 140 mmol/L (136-145)
[2020-04-04 09:15] LABS: BARBITURATE SCREEN,URINE NEGATIVE (NEGATIVE); BENZODIAZEPINES SCREEN,URINE POSITIVE (NEGATIVE); TCA SCREEN,URINE NEGATIVE (NEGATIVE); THC SCREEN,URINE 50 NG/ML NEGATIVE (NEGATIVE)
[2020-04-04] MEDS ORDERED: Folic Acid 1 MG Tab PO SCH (10:45)
[2020-04-04] MEDS ORDERED: chlordiazePOXIDE 25 MG Cap PO SCH (10:45)
[2020-04-04] MEDS ORDERED: Haloperidol 0.5 MG Tab PO PRN (11:43)
[2020-04-04] MEDS: Dextrose 5%-0.45% NaCl 1,000 ML IV SCH (12:18)
[2020-04-04] MEDS: Ciprofloxacin in D5W 400 MG in Premix Bag 1 BAG IV SCH ×2 (12:22)
[2020-04-04] MEDS: Nicotine 7 MG/24 Hr Patch TRDERM SCH (12:23)
--- NOTE | 2020-04-04 13:42 | PCM.PN ---
- General Info Date of Service: 04/04/20 Functional Status: Reports: Pain Controlled, Tolerating Diet, Urinating - Review of Systems HEENT: Denies: Headaches Pulmonary: Denies: Shortness of Breath, Cough Cardiovascular: Denies: Chest Pain Gastrointestinal: Denies: Abdominal Pain, Constipation, Diarrhea, Nausea, Vomiting Genitourinary: Reports: No Symptoms Neurological: Reports: Tremors, Difficulty Walking, Gait Disturbance. Denies: Confusion, Dizziness, Headache Psychiatric: Denies: Confusion, Depression, Anxiety, Agitation, Hallucinations - Patient Data Vitals - Most Recent: Last Vital Signs Temp 98.8 F 04/04/20 11:00 Pulse 82 04/04/20 11:00 Resp 18 04/04/20 11:00 BP 115/69 04/04/20 11:00 Pulse Ox 93 L 04/04/20 11:00 Weight - Most Recent: 213 lb 5 oz I&O - Last 24 Hours: Intake & Output 04/03/20 04/04/20 04/04/20 22:59 06:59 14:59 Intake Total 1679 300 Balance 1679 300 Lab Results Last 24 Hours: Laboratory Results - last 24 hr 04/04/20 04/04/20 04/04/20 Range/Units 07:20 07:20 08:53 WBC 17.63 H D (5.00-10.00) 10^3/uL RBC 3.90 L (4.50-6.00) 10^6/uL Hgb 12.1 L (13.0-17.0) g/dL Hct 36.5 L (40.0-52.0) % MCV 93.6 H (82.0-92.0) fL MCH 31.0 (27.0-31.0) pg MCHC 33.2 (32.0-36.0) g/dL RDW 13.9 (11.5-14.5) % Plt Count 221 (150-400) 10^3/uL MPV 9.5 (7.4-10.4) fL Immature Gran % (Auto) 0.7 (0.0-5.0) % Neut % (Auto) 85.7 H (50.0-70.0) % Lymph % (Auto) 7.4 L (20.0-40.0) % Avery % (Auto) 5.8 (2.0-8.0) % Eos % (Auto) 0.3 L (1.0-3.0) % Baso % (Auto) 0.1 (0.0-1.0) % Neut # (Auto) 15.10 H (2.50-7.00) 10^3/uL Lymph # (Auto) 1.30 (1.00-4.00) 10^3/uL Avery # (Auto) 1.03 H (0.10-0.80) 10^3/uL Eos # (Auto) 0.06 L (0.10-0.30) 10^3/uL Baso # (Auto) 0.02 (0.00-0.10) 10^3/uL Immature Gran # (Auto) 0.12 (0.00-0.50) 10^3/uL Sodium 140 (136-145) mmol/L Potassium 3.9 (3.5-5.1) mmol/L Chloride 104 (98-107) mmol/L Carbon Dioxide 28.5 (21.0-32.0) mmol/L Anion Gap 11.4 (5-15) mmol/L BUN 11 (7-18) mg/dL Creatinine 0.77 (0.51-1.17) mg/dL Est Cr Clr Drug Dosing 102.18 mL/min Estimated GFR (MDRD) > 60 mL/min Glucose 106 (70-140) mg/dL Calcium 10.0 (8.7-10.3) mg/dL Total Bilirubin 0.8 (0.2-1.0) mg/dL AST 59 H (15-37) U/L ALT 42 (14-63) U/L Alkaline Phosphatase 78 (46-116) U/L Total Protein 6.5 (6.4-8.2) g/dL Albumin 2.67 L (3.40-5.00) g/dL Specimen Type Urinvoid Urine Color Yellow (YELLOW) Urine Appearance Slightly cloudy H (CLEAR) Urine pH 5.0 (5.0-9.0) Ur Specific [place] 1.020 (1.005-1.030) Urine Protein Negative (NEGATIVE) mg/dL Urine Glucose (UA) Negative (NEGATIVE) mg/dL Urine Ketones Negative (NEGATIVE) mg/dL Urine Occult Blood Small H (NEGATIVE) Urine Nitrite Negative (NEGATIVE) Urine Bilirubin Negative (NEGATIVE) Urine Urobilinogen 0.2 (0.2-1.0) E.U./dL Ur Leukocyte Esterase Negative (NEGATIVE) Urine RBC 0-5 (0-5) /HPF Urine WBC 20-30 H (0-5) /HPF Ur Epithelial Cells Few /LPF Urine Bacteria Few (NONE TO FEW) /HPF Urine Opiates Screen (NEGATIVE) Ur Oxycodone Screen (NEGATIVE) Urine Methadone Screen (NEGATIVE) Ur Propoxyphene Screen (NEGATIVE) Ur Barbiturates Screen (NEGATIVE) Ur Tricyclics Screen (NEGATIVE) Ur Phencyclidine Scrn (NEGATIVE) Ur Amphetamine Screen (NEGATIVE) U Methamphetamines Scrn (NEGATIVE) U Benzodiazepines Scrn (NEGATIVE) U Cocaine Metab Screen (NEGATIVE) U Marijuana (THC) Screen (NEGATIVE) 04/04/20 Range/Units 08:53 WBC (5.00-10.00) 10^3/uL RBC (4.50-6.00) 10^6/uL Hgb (13.0-17.0) g/dL Hct (40.0-52.0) % MCV (82.0-92.0) fL MCH (27.0-31.0) pg MCHC (32.0-36.0) g/dL RDW (11.5-14.5) % Plt Count (150-400) 10^3/uL MPV (7.4-10.4) fL Immature Gran % (Auto) (0.0-5.0) % Neut % (Auto) (50.0-70.0) % Lymph % (Auto) (20.0-40.0) % Avery % (Auto) (2.0-8.0) % Eos % (Auto) (1.0-3.0) % Baso % (Auto) (0.0-1.0) % Neut # (Auto) (2.50-7.00) 10^3/uL Lymph # (Auto) (1.00-4.00) 10^3/uL Avery # (Auto) (0.10-0.80) 10^3/uL Eos # (Auto) (0.10-0.30) 10^3/uL Baso # (Auto) (0.00-0.10) 10^3/uL Immature Gran # (Auto) (0.00-0.50) 10^3/uL Sodium (136-145) mmol/L Potassium (3.5-5.1) mmol/L Chloride (98-107) mmol/L Carbon Dioxide (21.0-32.0) mmol/L Anion Gap (5-15) mmol/L BUN (7-18) mg/dL Creatinine (0.51-1.17) mg/dL Est Cr Clr Drug Dosing mL/min Estimated GFR (MDRD) mL/min Glucose (70-140) mg/dL Calcium (8.7-10.3) mg/dL Total Bilirubin (0.2-1.0) mg/dL AST (15-37) U/L ALT (14-63) U/L Alkaline Phosphatase (46-116) U/L Total Protein (6.4-8.2) g/dL Albumin (3.40-5.00) g/dL Specimen Type Urine Color (YELLOW) Urine Appearance (CLEAR) Urine pH (5.0-9.0) Ur Specific [place] (1.005-1.030) Urine Protein (NEGATIVE) mg/dL Urine Glucose (UA) (NEGATIVE) mg/dL Urine Ketones (NEGATIVE) mg/dL Urine Occult Blood (NEGATIVE) Urine Nitrite (NEGATIVE) Urine Bilirubin (NEGATIVE) Urine Urobilinogen (0.2-1.0) E.U./dL Ur Leukocyte Esterase (NEGATIVE) Urine RBC (0-5) /HPF Urine WBC (0-5) /HPF Ur Epithelial Cells /LPF Urine Bacteria (NONE TO FEW) /HPF Urine Opiates Screen Negative (NEGATIVE) Ur Oxycodone Screen Negative (NEGATIVE) Urine Methadone Screen Negative (NEGATIVE) Ur Propoxyphene Screen Negative (NEGATIVE) Ur Barbiturates Screen Negative (NEGATIVE) Ur Tricyclics Screen Negative (NEGATIVE) Ur Phencyclidine Scrn Negative (NEGATIVE) Ur Amphetamine Screen Negative (NEGATIVE) U Methamphetamines Scrn Negative (NEGATIVE) U Benzodiazepines Scrn Positive H (NEGATIVE) U Cocaine Metab Screen Negative (NEGATIVE) U Marijuana (THC) Screen Negative (NEGATIVE) Nacho Results Last 24 Hours: Microbiology 04/01/20 22:23 Bacterial ID and Susceptibility - Final Urine Escherichia Coli 04/02/20 12:00 Aerobic Blood Culture - Preliminary Blood - Venous - Lab Draw NO GROWTH AFTER 2 DAYS Anaerobic Blood Culture - Preliminary NO GROWTH AFTER 2 DAYS 04/02/20 11:35 Aerobic Blood Culture - Preliminary Blood - Venous NO GROWTH AFTER 2 DAYS Anaerobic Blood Culture - Preliminary NO GROWTH AFTER 2 DAYS 04/01/20 22:35 Aerobic Blood Culture - Preliminary Blood - Arm, Right NO GROWTH AFTER 2 DAYS Anaerobic Blood Culture - Preliminary NO GROWTH AFTER 2 DAYS 04/01/20 22:45 Aerobic Blood Culture - Preliminary Blood - Arm, Left NO GROWTH AFTER 2 DAYS Anaerobic Blood Culture - Preliminary NO GROWTH AFTER 2 DAYS Med Orders - Current: Current Medications Acetaminophen (Tylenol) 650 mg PO Q4H PRN PRN Reason: Pain (Mild 1-3)/fever Last Admin: 04/03/20 03:54 Dose: 650 mg Documented by: Enoxaparin Sodium (Lovenox) 40 mg SUBCUT Q24H [facility] Last Admin: 04/03/20 14:26 Dose: 40 mg Documented by: Haloperidol (Haldol) 1 mg PO Q6H PRN PRN Reason: Agitation Ciprofloxacin/Dextrose 400 mg/ (Premix) 200 mls @ 200 mls/hr IV Q12H [facility] Last Admin: 04/04/20 12:22 Dose: 200 mls/hr Documented by: Dextrose/Sodium Chloride (Dextrose 5%-1/2 Ns) 1,000 mls @ 75 mls/hr IV ASDIRECTED [facility] Last Admin: 04/04/20 12:18 Dose: 75 mls/hr Documented by: Melatonin (Melatonin) 3 mg PO BEDTIME [facility] Nicotine (Habitrol) 7 mg TRDERM DAILY [facility] Last Admin: 04/04/20 12:23 Dose: Not Given Documented by: Sodium Chloride (Saline Flush) 10 ml FLUSH Q8HR PRN PRN Reason: keep vein open Discontinued Medications Acetaminophen (Tylenol Extra Strength) 1,000 mg PO ONETIME ONE Stop: 04/01/20 23:13 Last Admin: 04/01/20 23:19 Dose: 1,000 mg Documented by: Ceftriaxone Sodium (Rocephin) 1 gm IVPUSH ONETIME ONE Stop: 04/01/20 22:35 Last Admin: 04/01/20 22:58 Dose: 1 gm Documented by: Ceftriaxone Sodium (Rocephin) 1 gm IVPUSH Q24H [facility] Last Admin: 04/02/20 08:20 Dose: 1 gm Documented by: Chlordiazepoxide HCl (Librium) 50 mg PO Q6H [facility] Folic Acid (Folic Acid) 1 mg PO DAILY [facility] Haloperidol Lactate (Haldol) 2.5 mg IM ONETIME ONE Stop: 04/03/20 00:07 Last Admin: 04/04/20 00:09 Dose: Not Given Documented by: Haloperidol Lactate (Haldol) 2.5 mg IM ONETIME ONE Stop: 04/04/20 00:07 Last Admin: 04/04/20 00:12 Dose: 2.5 mg Documented by: Haloperidol Lactate (Haldol) 2.5 mg IM ONETIME ONE Stop: 04/04/20 00:51 Last Admin: 04/04/20 00:51 Dose: 2.5 mg Documented by: Haloperidol Lactate (Haldol) 5 mg IM ONETIME ONE Stop: 04/04/20 06:21 Last Admin: 04/04/20 06:30 Dose: 5 mg Documented by: Haloperidol Lactate (Haldol) Confirm Administered Dose 5 mg .ROUTE .STK-MED ONE Stop: 04/04/20 06:23 Last Admin: 04/04/20 06:43 Dose: Not Given Documented by: Sodium Chloride (Normal Saline) 1,000 mls @ 999 mls/hr IV .BOLUS ONE Stop: 04/01/20 22:56 Last Admin: 04/01/20 22:13 Dose: 999 mls/hr Documented by: Sodium Chloride (Normal Saline) 1,000 mls @ 125 mls/hr IV ASDIRECTED [facility] Last Admin: 04/03/20 17:42 Dose: 125 mls/hr Documented by: Lorazepam (Ativan) 0.25 mg IVPUSH ONETIME ONE Stop: 04/03/20 22:48 Last Admin: 04/03/20 23:08 Dose: 0.25 mg Documented by: Melatonin (Melatonin) 3 mg PO BEDTIME PRN PRN Reason: Insomnia Last Admin: 04/03/20 23:08 Dose: 3 mg Documented by: Ondansetron HCl (Zofran) 4 mg IVPUSH Q6H PRN PRN Reason: Nausea/Vomiting Last Admin: 04/02/20 18:34 Dose: 4 mg Documented by: Thiamine HCl (Vitamin B-1) 100 mg PO BEDTIME [facility] - Exam Quality Assessment: DVT Prophylaxis (Lovenox 40 mg SQ daily). No: Supplemental Oxygen, Urine Catheter General: Alert, Oriented (to self only), Cooperative, No Acute Distress Lungs: Clear to Auscultation, Normal Respiratory Effort Cardiovascular: Regular Rate, Regular Rhythm, No Murmurs GI/Abdominal Exam: Normal Bowel Sounds, Soft, Non-Tender, No Distention Extremities: No Pedal Edema Skin: Warm, Dry, Intact Neurological: Normal Speech, Other (tremors of upper extremities) Psy/Mental Status: Alert, Agitated Sepsis Event Note - Evaluation Sepsis Screening Result: No Definite Risk - Focused Exam Vital Signs: Vital Signs Temp Pulse Resp BP Pulse Ox 04/04/20 11:00 98.8 F 82 18 115/69 93 L 04/04/20 06:45 96 20 121/72 93 L 04/04/20 03:04 99.1 F 90 20 117/68 93 L - Problem List Review Problem List Initiated/Reviewed/Updated: Yes - My Orders Last 24 Hours: My Active Orders 04/04/20 06:39 CIWAA Assessment [RC] Q4H 04/04/20 10:45 Dextrose 5%-0.45% NaCl [Dextrose 5%-1/2 NS] 1,000 ml IV ASDIRECTED Nicotine [Habitrol] 7 mg TRDERM DAILY 04/04/20 11:43 haloperidoL [Haldol] 1 mg PO Q6H PRN 04/04/20 21:00 Melatonin 3 mg PO BEDTIME 04/05/20 05:11 BMP [BASIC METABOLIC PANEL,BMP] [CHEM] AM CBC WITH AUTO DIFF [HEME] AM - Plan Plan:: HPI summary: This is a 69 yoM who was admitted through the ED d/t lower abdominal pain. He was seen at an [facility] that morning d/t having constipation issues for the past month. He was noted to have a WBC 21.7 w/left shift. 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 Clinic provider was unable to reach patient and he subsequently presented to the ED with dysuria, urinary frequency, and flank pain. ED course: WBC 29.7 w/92% neutrophils UA positive for nitrites, small leukocyte esterase, few bacteria, >100 WBCs BMP unremarkable Rocephin 1 gm IV x 1 NS bolus BC x 2 Urine culture Hospital course: 04/02/2020: Increasing WBC to approximately 30,000 with increasing neutrophilia. Digital rectal exam done this morning with very tender prostate, perineal pain, and cloudy urine noted. Antibiotics were changed from Rocephin to ciprofloxacin as doubtful pyelonephritis more likely prostatitis in nature. Lactate this morning on rounds demonstrates sepsis with lactic acid of 2.3, electrolytes normal, febrile. qSOFA 1/3. 04/03/2020: Feeling much better today; no flank pain, no dysuria, afebrile past 12 hours, overall appearance much improved. No growth on BC, urine culture pending. 04/04/20: Multiple calls overnight d/t acute delirium and agitation/aggression. He was given melatonin 3 mg po and ativan 0.25 mg IV x 1 w/o improvement. He then was given Haldol 2.5 mg IM x 2 around midnight. By 3 am patient finally resting. Awoke at 6 am and continued to be belligerent to nursing staff and required 1:1 supervision. Order given for Haldol 5 mg IM x 1 now with some improvement noted during morning rounds. Brother at bedside and the other brother on the phone who confirm no chronic alcohol use by patient and brought in deep brain stimulator remote. Patient cooperative during provider assessment and oriented to self only. VS: T 98.8F HR 82 RR 18 BP 115/69 O2 sat 93%. WBC 17.6 with 86% neutrophils, Hgb 12.1, electrolytes wnl, AST 59, UA few bacteria and 20-30 WBCs, urine tox positive for benzos only d/t prior one time ativan use in hospital. UC positive for Ecoli, which is sensitive to Cipro. BC x 4 prelim no growth. Hospitalization problems and plan: # Prostatitis, acute # Ecoli UTI # Acute delirium # Sepsis, resolved # 2 cm lesion of the lateral cortex of the left kidney - Continue Cipro 400 mg IV q12h - D51/2NS at 75 mL/hr - Try nonpharmacologic options such as redirecting, etc prior to haldol use for agitation - Haldol 1 mg q6h po prn - Melatonin 3 mg at HS Chronic, stable conditions: # Essential tremor. Deep brain stimulator remote at bedside. Brothers confirm he uses this during the day, but turns off at night. 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 Follows with Dr. Arita, neurologist at [facility]. Last seen 08/2018. # Appendicular, speech, and gait ataxia. # Developmental learning disability. # Osteoarthrosis. # Tobacco dependence. Nicotine 7 mg transdermal patch applied. Hospitalization details: # FEN: IVF at 75 ml/hr, electrolytes wnl, Heart Healthy Diet. # PPX: Lovenox. # Code status: Full Code. # Emergency contact: Devonte, brother. # Disposition: Will continue patient in inpatient status to monitor his infection and delirium. Continue IV antibiotic and IVFs. Labs in AM. Possible discharge home in the AM pending clinical course.
[2020-04-04] MEDS: Enoxaparin 40 MG/0.4 ML Syringe SUBCUT SCH (15:54)
[2020-04-04] MEDS ORDERED: Thiamine 100 MG Tab PO SCH (21:00)
[2020-04-04] MEDS ORDERED: Melatonin 3 MG Tab PO SCH (21:00)
[2020-04-05] MEDS: Ciprofloxacin in D5W 400 MG in Premix Bag 1 BAG IV SCH ×2 (00:17)
[2020-04-05] MEDS: Dextrose 5%-0.45% NaCl 1,000 ML IV SCH (02:51)
[2020-04-05] MEDS: Acetaminophen 325 MG Tab PO PRN (05:41)
[2020-04-05 07:50] LABS: CHLORIDE,CL 106 mmol/L (98-107); SODIUM,NA 141 mmol/L (136-145)
[2020-04-05] MEDS: Nicotine 7 MG/24 Hr Patch TRDERM SCH (09:55)
--- NOTE | 2020-04-05 10:45 | PCM.DCSUM1 ---
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 Deep brain stimulator. 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 Follows with Dr. Arita, neurologist at [facility]. Last seen 08/2018. # Appendicular, speech, and gait ataxia. # Developmental learning disability. # Osteoarthrosis. # Tobacco dependence. Consultations: None Procedures: None Hospital course: HPI summary: This is a 69 yoM who was admitted through the ED d/t lower abdominal pain. He was seen at an [facility] that morning d/t having constipation issues for the past month. He was noted to have a WBC 21.7 w/left shift. 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 Clinic provider was unable to reach patient and he subsequently presented to the ED with dysuria, urinary frequency, and flank pain. ED course: WBC 29.7 w/92% neutrophils UA positive for nitrites, small leukocyte esterase, few bacteria, >100 WBCs BMP unremarkable Rocephin 1 gm IV x 1 NS bolus BC x 2 Urine culture Hospital course: 04/02/2020: Increasing WBC to approximately 30,000 with increasing neutrophilia. Digital rectal exam done this morning with very tender prostate, perineal pain, and cloudy urine noted. Antibiotics were changed from Rocephin to ciprofloxacin as doubtful pyelonephritis more likely prostatitis in nature. Lactate this morning on rounds demonstrates sepsis with lactic acid of 2.3, electrolytes normal, febrile. qSOFA 1/3. 04/03/2020: Feeling much better today; no flank pain, no dysuria, afebrile past 12 hours, overall appearance much improved. No growth on BC, urine culture pending. 04/04/20: Multiple calls overnight d/t acute delirium and agitation/aggression. He was given melatonin 3 mg po and ativan 0.25 mg IV x 1 w/o improvement. He then was given Haldol 2.5 mg IM x 2 around midnight. By 3 am patient finally resting. Awoke at 6 am and continued to be belligerent to nursing staff and required 1:1 supervision. Order given for Haldol 5 mg IM x 1 now with some improvement noted during morning rounds. Brother at bedside and the other brother on the phone who confirm no chronic alcohol use by patient and brought in deep brain stimulator remote. Patient cooperative during provider assessment and oriented to self only. VS: T 98.8F HR 82 RR 18 BP 115/69 O2 sat 93%. WBC 17.6 with 86% neutrophils, Hgb 12.1, electrolytes wnl, AST 59, UA few bacteria and 20-30 WBCs, urine tox positive for benzos only d/t prior one time ativan use in hospital. UC positive for Ecoli, which is sensitive to Cipro. BC x 4 prelim no growth. 04/05/20: No calls overnight. Patient did not appear to be in acute delirious state any longer and did not require po haldol. Likely the lack of his deep brain stimulator for 2 days could have contributed to delirium. Patient feeling well this morning w/o complaints. Brother, Devonte, at bedside during rounds. VS T 98.7F HR 80 RR 18 BP 134/84 O2 sat 94% on room air. WBC 10.5 with neutrophils of 76.1%. BMP unremarkable. Discharge and follow-up recommendations: - Discharge to home, self care with family/friend assistance as needed. - Medication changes at discharge: - Cipro 500 mg po BID (total of 1 week given between IV and pill script) - Follow-up with Faraz Levin APRN, CNP on 04/08/[address] [facility]. - Considerations at follow-up include: - Obtain renal US to confirm etiology of noted lesion on CT. - Consider extending antibiotic course for full 2-4 weeks for prostatitis. - Pending results: None - Discharge Data Discharge Date: 04/05/20 Discharge Disposition: Home, Self-Care 01 Condition: Good - Referral to Home Health Primary Care Physician: Bushra Hawk NP - Patient Instructions Diet: Usual Diet as Tolerated Activity: As Tolerated Driving: Do Not Drive Showering/Bathing: May Shower Notify Provider of: Fever, Increased Pain, Nausea and/or Vomiting (burning with urination, testicle pain) - Discharge Plan *PRESCRIPTION DRUG MONITORING PROGRAM REVIEWED*: Not Applicable *COPY OF PRESCRIPTION DRUG MONITORING REPORT IN PATIENT YANELI: Not Applicable Prescriptions/Med Rec: Ciprofloxacin HCl [Cipro] 500 mg PO BID #8 tablet Home Medications: Home Meds Hydrocortisone [Hydrocortisone 2.5% Crm] 1 applic TOP BID 04/02/20 [History] Ibuprofen [Advil] 200 mg PO Q4H PRN 04/02/20 [History] Multivitamin 1 tab PO DAILY 04/02/20 [History] bisacodyL [Dulcolax] 10 mg PO BEDTIME 04/02/20 [History] polyethylene glycoL 3350 [MiraLAX] 17 gm PO DAILY 04/02/20 [History] Ciprofloxacin HCl [Cipro] 500 mg PO BID #8 tablet 04/05/20 [Rx] Forms: ED Department Discharge Referrals: Faraz Levin NP [Nurse Practitioner] - 04/08/20 (Please call the [facility] during normal business hours to schedule your appointment. ) - Discharge Summary/Plan Comment DC Time >30 min.: Yes - General Info Date of Service: 04/05/20 Functional Status: Reports: Pain Controlled, Tolerating Diet, Ambulating, Urinating. Denies: New Symptoms - Review of Systems General: Denies: Fever, Chills HEENT: Denies: Headaches Pulmonary: Denies: Shortness of Breath Cardiovascular: Denies: Chest Pain Gastrointestinal: Denies: Abdominal Pain, Nausea, Vomiting Genitourinary: Reports: No Symptoms Neurological: Reports: Tremors. Denies: Confusion, Dizziness, Headache Psychiatric: Reports: No Symptoms - Patient Data Vitals - Most Recent: Last Vital Signs Temp 98.7 F 04/05/20 06:22 Pulse 80 04/05/20 06:22 Resp 18 04/05/20 06:22 BP 134/84 04/05/20 06:22 Pulse Ox 94 L 04/05/20 06:22 Weight - Most Recent: 214 lb I&O - Last 24 hours: Intake & Output 04/04/20 04/05/20 04/05/20 22:59 06:59 14:59 Intake Total 825 833 Balance 825 833 Lab Results - Last 24 hrs: Laboratory Results - last 24 hr 04/05/20 04/05/20 Range/Units 07:08 07:08 WBC 10.47 H (5.00-10.00) 10^3/uL RBC 3.96 L (4.50-6.00) 10^6/uL Hgb 12.2 L (13.0-17.0) g/dL Hct 36.6 L (40.0-52.0) % MCV 92.4 H (82.0-92.0) fL MCH 30.8 (27.0-31.0) pg MCHC 33.3 (32.0-36.0) g/dL RDW 14.1 (11.5-14.5) % Plt Count 260 (150-400) 10^3/uL MPV 9.5 (7.4-10.4) fL Immature Gran % (Auto) 1.2 (0.0-5.0) % Neut % (Auto) 76.1 H (50.0-70.0) % Lymph % (Auto) 12.0 L (20.0-40.0) % Baca % (Auto) 9.1 H (2.0-8.0) % Eos % (Auto) 1.3 (1.0-3.0) % Baso % (Auto) 0.3 (0.0-1.0) % Neut # (Auto) 7.96 H (2.50-7.00) 10^3/uL Lymph # (Auto) 1.26 (1.00-4.00) 10^3/uL Baca # (Auto) 0.95 H (0.10-0.80) 10^3/uL Eos # (Auto) 0.14 (0.10-0.30) 10^3/uL Baso # (Auto) 0.03 (0.00-0.10) 10^3/uL Immature Gran # (Auto) 0.13 (0.00-0.50) 10^3/uL Sodium 141 (136-145) mmol/L Potassium 3.5 (3.5-5.1) mmol/L Chloride 106 (98-107) mmol/L Carbon Dioxide 27.5 (21.0-32.0) mmol/L Anion Gap 11.0 (5-15) mmol/L BUN 7 (7-18) mg/dL Creatinine 0.69 (0.51-1.17) mg/dL Est Cr Clr Drug Dosing 114.03 mL/min Estimated GFR (MDRD) > 60 mL/min Glucose 105 (70-140) mg/dL Calcium 9.8 (8.7-10.3) mg/dL KRISTAL Results - Last 24 hrs: Microbiology 04/01/20 22:35 Aerobic Blood Culture - Preliminary Blood - Arm, Right NO GROWTH AFTER 3 DAYS Anaerobic Blood Culture - Preliminary NO GROWTH AFTER 3 DAYS 04/01/20 22:45 Aerobic Blood Culture - Preliminary Blood - Arm, Left NO GROWTH AFTER 3 DAYS Anaerobic Blood Culture - Preliminary NO GROWTH AFTER 3 DAYS 04/01/20 22:23 Bacterial ID and Susceptibility - Final Urine Escherichia Coli 04/02/20 12:00 Aerobic Blood Culture - Preliminary Blood - Venous - Lab Draw NO GROWTH AFTER 2 DAYS Anaerobic Blood Culture - Preliminary NO GROWTH AFTER 2 DAYS 04/02/20 11:35 Aerobic Blood Culture - Preliminary Blood - Venous NO GROWTH AFTER 2 DAYS Anaerobic Blood Culture - Preliminary NO GROWTH AFTER 2 DAYS Med Orders - Current: Current Medications Acetaminophen (Tylenol) 650 mg PO Q4H PRN PRN Reason: Pain (Mild 1-3)/fever Last Admin: 04/05/20 05:41 Dose: 650 mg Documented by: Enoxaparin Sodium (Lovenox) 40 mg SUBCUT Q24H [facility] Last Admin: 04/04/20 15:54 Dose: 40 mg Documented by: Haloperidol (Haldol) 1 mg PO Q6H PRN PRN Reason: Agitation Ciprofloxacin/Dextrose 400 mg/ (Premix) 200 mls @ 200 mls/hr IV Q12H [facility] Last Admin: 04/05/20 00:17 Dose: 200 mls/hr Documented by: Dextrose/Sodium Chloride (Dextrose 5%-1/2 Ns) 1,000 mls @ 75 mls/hr IV ASDIRECT ED [facility] Last Admin: 04/05/20 02:51 Dose: 75 mls/hr Documented by: Melatonin (Melatonin) 3 mg PO BEDTIME [facility] Last Admin: 04/04/20 20:48 Dose: 3 mg Documented by: Nicotine (Habitrol) 7 mg TRDERM DAILY [facility] Last Admin: 04/05/20 09:55 Dose: Not Given Documented by: Sodium Chloride (Saline Flush) 10 ml FLUSH Q8HR PRN PRN Reason: keep vein open Discontinued Medications Acetaminophen (Tylenol Extra Strength) 1,000 mg PO ONETIME ONE Stop: 04/01/20 23:13 Last Admin: 04/01/20 23:19 Dose: 1,000 mg Documented by: Ceftriaxone Sodium (Rocephin) 1 gm IVPUSH ONETIME ONE Stop: 04/01/20 22:35 Last Admin: 04/01/20 22:58 Dose: 1 gm Documented by: Ceftriaxone Sodium (Rocephin) 1 gm IVPUSH Q24H [facility] Last Admin: 04/02/20 08:20 Dose: 1 gm Documented by: Chlordiazepoxide HCl (Librium) 50 mg PO Q6H [facility] Last Admin: 04/04/20 19:24 Dose: Not Given Documented by: Folic Acid (Folic Acid) 1 mg PO DAILY [facility] Last Admin: 04/04/20 19:23 Dose: Not Given Documented by: Haloperidol Lactate (Haldol) 2.5 mg IM ONETIME ONE Stop: 04/03/20 00:07 Last Admin: 04/04/20 00:09 Dose: Not Given Documented by: Haloperidol Lactate (Haldol) 2.5 mg IM ONETIME ONE Stop: 04/04/20 00:07 Last Admin: 04/04/20 00:12 Dose: 2.5 mg Documented by: Haloperidol Lactate (Haldol) 2.5 mg IM ONETIME ONE Stop: 04/04/20 00:51 Last Admin: 04/04/20 00:51 Dose: 2.5 mg Documented by: Haloperidol Lactate (Haldol) 5 mg IM ONETIME ONE Stop: 04/04/20 06:21 Last Admin: 04/04/20 06:30 Dose: 5 mg Documented by: Haloperidol Lactate (Haldol) Confirm Administered Dose 5 mg .ROUTE .STK-MED ONE Stop: 04/04/20 06:23 Last Admin: 04/04/20 06:43 Dose: Not Given Documented by: Sodium Chloride (Normal Saline) 1,000 mls @ 999 mls/hr IV .BOLUS ONE Stop: 04/01/20 22:56 Last Admin: 04/01/20 22:13 Dose: 999 mls/hr Documented by: Sodium Chloride (Normal Saline) 1,000 mls @ 125 mls/hr IV ASDIRECTED [facility] Last Admin: 04/03/20 17:42 Dose: 125 mls/hr Documented by: Lorazepam (Ativan) 0.25 mg IVPUSH ONETIME ONE Stop: 04/03/20 22:48 Last Admin: 04/03/20 23:08 Dose: 0.25 mg Documented by: Melatonin (Melatonin) 3 mg PO BEDTIME PRN PRN Reason: Insomnia Last Admin: 04/03/20 23:08 Dose: 3 mg Documented by: Ondansetron HCl (Zofran) 4 mg IVPUSH Q6H PRN PRN Reason: Nausea/Vomiting Last Admin: 04/02/20 18:34 Dose: 4 mg Documented by: Thiamine HCl (Vitamin B-1) 100 mg PO BEDTIME [facility] - Exam Quality Assessment: Reports: DVT Prophylaxis (Lovenox). Denies: Supplemental Oxygen, Urine Catheter General: Reports: Alert, Oriented, Cooperative, No Acute Distress Lungs: Reports: Clear to Auscultation, Normal Respiratory Effort Cardiovascular: Reports: Regular Rate, Regular Rhythm, No Murmurs GI/Abdominal Exam: Normal Bowel Sounds, Soft, Non-Tender, No Distention Extremities: No Pedal Edema Skin: Reports: Warm, Dry Neurological: Reports: Normal Speech, Other (upper extremity tremors) Psy/Mental Status: Reports: Alert, Normal Affect, Normal Mood
[2020-04-05] MEDS ORDERED: Ciprofloxacin 500 MG Tab ONE (11:05)
== END 2020-04-05 11:20 | disposition home or self-care (01) | DRG 872 ==
LOC: SUPCPDRO 21:37 → KA.ED 21:37 → KA.MS 23:07 → UNDOADMIN 23:50 → KA.MS 23:50
PROVIDERS: ADMIT Physician Assistant Medical; ATTEND Family Medicine
DX: A41.9 Sepsis, unspecified organism (principal); N41.0 Acute prostatitis; N12 Tubulo-interstitial nephritis, not specified as acute or chronic; N28.9 Disorder of kidney and ureter, unspecified; B96.20 Unspecified Escherichia coli [E. coli] as the cause of diseases classified elsewhere; N41.9 Inflammatory disease of prostate, unspecified; R50.9 Fever, unspecified; M19.90 Unspecified osteoarthritis, unspecified site; Z20.822 Contact with and (suspected) exposure to COVID-19; Z88.8 Allergy status to other drugs, medicaments and biological substances; Z79.899 Other long term (current) drug therapy
CPT/HCPCS: 36415; 71046; 74177; 80048; 80053; 80305-QW; 81001; 83605; 83690; 85025; 87040; 87086; 87088; 87186; 96374; 99284; 99285-25; A9270-GY; J0696; J0744; J1630; J1650; J2060; J2405; J7030; J7042; Q9963; Q9967; U0002

== ENCOUNTER 2022-08-01 06:56 | Day surgery (SDC) | payer MEDICARE, OTHER ==
[2022-08-01] MEDS ORDERED: Sodium Chloride 0.9% 10 ML Syringe FLUSH PRN (07:00)
[2022-08-01] MEDS ORDERED: Lactated Ringers 1,000 ML IV SCH (07:00)
[2022-08-01] MEDS ORDERED: Lidocaine 2% 100 MG/5 ML Syringe ONE (07:47)
[2022-08-01] MEDS ORDERED: Midazolam 1 MG/ML 2 ML SDV ONE (07:47)
[2022-08-01] MEDS ORDERED: Glycopyrrolate 0.2 MG/ML SDV ONE (07:47)
[2022-08-01] MEDS ORDERED: Propofol 200 MG/20 ML SDV ONE (07:47)
[2022-08-01] MEDS ORDERED: EPINEPHrine 1:10,000 1 MG/10 ML Syringe ONE (07:59)
== END 2022-08-01 10:46 | disposition home or self-care (01) ==
LOC: KA.SDS 06:56
PROVIDERS: ATTEND Family Medicine
DX: K44.9 Diaphragmatic hernia without obstruction or gangrene (principal); K59.00 Constipation, unspecified; R19.7 Diarrhea, unspecified; R19.15 Other abnormal bowel sounds; F17.290 Nicotine dependence, other tobacco product, uncomplicated; Z79.899 Other long term (current) drug therapy; Z88.6 Allergy status to analgesic agent; Z88.1 Allergy status to other antibiotic agents; Z98.890 Other specified postprocedural states
CPT/HCPCS: 00813; J2250; J2704; J3490; J7120

== ENCOUNTER 2023-03-31 18:10 | Emergency (ER) | payer MEDICARE, OTHER ==
[2023-03-31 18:41] LABS: BASOPHILS ABSOLUTE AUTO 0.05 10^3/uL (0.00-0.10); BASOPHILS PERCENT AUTO 0.3 % (0.0-1.0); EOSINOPHILS ABSOLUTE AUTO 0.12 10^3/uL (0.10-0.30); EOSINOPHILS PERCENT AUTO 0.6 % (1.0-3.0); HEMATOCRIT 42.1 % (40.0-52.0); HEMOGLOBIN 14.1 g/dL (13.0-17.0); IMMATURE GRAN ABSOLUTE AUTO 0.02 10^3/uL (0.00-0.50); IMMATURE GRAN PERCENT AUTO 0.1 % (0.0-5.0); LYMPHOCYTES ABSOLUTE AUTO 1.54 10^3/uL (1.00-4.00); LYMPHOCYTES PERCENT AUTO 8.2 % (20.0-40.0); MEAN CORPUSCULAR HEMOGLOBIN 31.7 pg (27.0-31.0); MEAN CORPUSCULAR HGB CONC 33.5 g/dL (32.0-36.0); MEAN CORPUSCULAR VOLUME 94.6 fL (82.0-92.0); MEAN PLATELET VOLUME 9.2 fL (7.4-10.4); MONOCYTES ABSOLUTE AUTO 1.37 10^3/uL (0.10-0.80); MONOCYTES PERCENT AUTO 7.3 % (2.0-8.0); NEUTROPHILS ABSOLUTE AUTO 15.76 10^3/uL (2.50-7.00); NEUTROPHILS PERCENT AUTO 83.5 % (50.0-70.0); PLATELET COUNT,PLT 253 10^3/uL (150-400); RED BLOOD CELL COUNT 4.45 10^6/uL (4.50-6.00); RED CELL DISTRIBUTION WIDTH 13.7 % (11.5-14.5); WHITE BLOOD CELL COUNT,WBC 18.86 10^3/uL (5.00-10.00)
[2023-03-31 19:01] LABS: ALBUMIN 3.51 g/dL (3.40-5.00); ANION GAP 13.9 mmol/L (5-15); BILIRUBIN TOTAL 0.7 mg/dL (0.2-1.0); CALCIUM 8.4 mg/dL (8.7-10.3); CARBON DIOXIDE,CO2 28.3 mmol/L (21.0-32.0); CREATININE 1.12 mg/dL (0.51-1.17); EST CRCL DRUG DOSING (CG) 67.36 mL/min; POTASSIUM,K 4.2 mmol/L (3.5-5.1); PROTEIN TOTAL,TP 6.7 g/dL (6.4-8.2)
[2023-03-31] MEDS ORDERED: Sodium Chloride 0.9% 10 ML Syringe FLUSH PRN (19:35)
[2023-03-31 19:45] LABS: APPEARANCE,URINE CLEAR (CLEAR); BILIRUBIN,URINE NEGATIVE (NEGATIVE); COLOR,URINE YELLOW (YELLOW); GLUCOSE,URINE NEGATIVE (NEGATIVE); KETONES,URINE NEGATIVE (NEGATIVE); LEUKOCYTE ESTERASE,URINE SMALL (NEGATIVE); NITRITE,URINE NEGATIVE (NEGATIVE); OCCULT BLOOD,URINE NEGATIVE (NEGATIVE); PROTEIN,URINE NEGATIVE (NEGATIVE); UROBILINOGEN,URINE 0.2 E.U./dL (0.2-1.0)
[2023-03-31 19:55] LABS: BACTERIA,URINE OCCASIONAL /HPF (NONE TO FEW); EPITHELIAL CELLS,URINE OCCASIONAL /LPF; RBC,URINE 0-5 /HPF (0-5); WBC,URINE 20-30 /HPF (0-5)
[2023-03-31] MEDS ORDERED: Sulfamethoxazole/Trimethoprim 800-160 MG Tab PO ONE (20:18)
== END 2023-03-31 20:40 | disposition home or self-care (01) ==
LOC: KA.ED 18:10
DX: N39.0 Urinary tract infection, site not specified (principal); D72.819 Decreased white blood cell count, unspecified; Z88.1 Allergy status to other antibiotic agents; Z88.8 Allergy status to other drugs, medicaments and biological substances
CPT/HCPCS: 36415; 80053; 81001; 83605; 85025; 87086; 87088; 99283; A9270-GY

== ENCOUNTER 2023-04-01 09:52 | Emergency (ER) | payer MEDICARE, OTHER | END 2023-04-01 12:00 | disposition home or self-care (01) | LOC: KA.ED 09:52 | DX: R11.2 Nausea with vomiting, unspecified (principal); K59.00 Constipation, unspecified; Z79.899 Other long term (current) drug therapy; Z79.82 Long term (current) use of aspirin; Z88.8 Allergy status to other drugs, medicaments and biological substances | CPT/HCPCS: 74021; 99284 ==

== ENCOUNTER 2024-04-20 11:10 | Emergency (ER) | payer MEDICARE, OTHER ==
[2024-04-20] MEDS: Lidocaine 1% with EPINEPHrine 1:100,000 20 ML MDV INJECT ONE (11:40)
[2024-04-20] MEDS: Lidocaine 1% with EPINEPHrine 1:100,000 20 ML MDV ONE (13:45)
== END 2024-04-20 12:10 | disposition home or self-care (01) ==
LOC: KA.ED 11:10
DX: S00.31XA Abrasion of nose, initial encounter (principal); Z88.8 Allergy status to other drugs, medicaments and biological substances; Z79.82 Long term (current) use of aspirin; Z79.01 Long term (current) use of anticoagulants; Z79.899 Other long term (current) drug therapy; X58.XXXA Exposure to other specified factors, initial encounter; Y93.89 Activity, other specified
CPT/HCPCS: 12011; 99282; 99283; J2004

== ENCOUNTER 2024-06-05 16:02 | Emergency (ER) | payer MEDICARE, OTHER ==
[2024-06-05 17:05] LABS: APPEARANCE,URINE CLEAR (CLEAR); BILIRUBIN,URINE NEGATIVE (NEGATIVE); COLOR,URINE YELLOW (YELLOW); GLUCOSE,URINE NEGATIVE (NEGATIVE); KETONES,URINE NEGATIVE (NEGATIVE); LEUKOCYTE ESTERASE,URINE NEGATIVE (NEGATIVE); NITRITE,URINE NEGATIVE (NEGATIVE); OCCULT BLOOD,URINE NEGATIVE (NEGATIVE); PH,URINE 5.5 (5.0-9.0); PROTEIN,URINE NEGATIVE (NEGATIVE); UROBILINOGEN,URINE 0.2 E.U./dL (0.2-1.0)
[2024-06-05 17:22] LABS: BASOPHILS ABSOLUTE AUTO 0.06 10^3/uL (0.00-0.10); BASOPHILS PERCENT AUTO 0.7 % (0.0-1.0); EOSINOPHILS ABSOLUTE AUTO 0.18 10^3/uL (0.10-0.30); EOSINOPHILS PERCENT AUTO 2.1 % (1.0-3.0); HEMATOCRIT 45.4 % (40.0-52.0); HEMOGLOBIN 14.7 g/dL (13.0-17.0); IMMATURE GRAN ABSOLUTE AUTO 0.02 10^3/uL (0.00-0.04); IMMATURE GRAN PERCENT AUTO 0.2 % (0.0-0.4); LYMPHOCYTES ABSOLUTE AUTO 1.75 10^3/uL (1.00-4.00); LYMPHOCYTES PERCENT AUTO 20.3 % (20.0-40.0); MEAN CORPUSCULAR HGB CONC 32.4 g/dL (32.0-36.0); MEAN CORPUSCULAR VOLUME 95.8 fL (82.0-92.0); MEAN PLATELET VOLUME 9.1 fL (7.4-10.4); MONOCYTES ABSOLUTE AUTO 0.76 10^3/uL (0.10-0.80); MONOCYTES PERCENT AUTO 8.8 % (2.0-8.0); NEUTROPHILS ABSOLUTE AUTO 5.85 10^3/uL (2.50-7.00); NEUTROPHILS PERCENT AUTO 67.9 % (50.0-70.0); PLATELET COUNT,PLT 279 10^3/uL (150-400); RED BLOOD CELL COUNT 4.74 10^6/uL (4.50-6.00); RED CELL DISTRIBUTION WIDTH 13.8 % (11.5-14.5); WHITE BLOOD CELL COUNT,WBC 8.62 10^3/uL (5.00-10.00)
[2024-06-05 17:40] LABS: ALBUMIN 3.65 g/dL (3.40-5.00); ANION GAP 11.5 mmol/L (5-15); BILIRUBIN TOTAL 0.4 mg/dL (0.2-1.0); CALCIUM 8.5 mg/dL (8.7-10.3); CARBON DIOXIDE,CO2 29.9 mmol/L (21.0-32.0); CREATININE 1.15 mg/dL (0.51-1.17); EST CRCL DRUG DOSING (CG) 64.67 mL/min; POTASSIUM,K 4.4 mmol/L (3.5-5.1); PROTEIN TOTAL,TP 6.9 g/dL (6.4-8.2)
== END 2024-06-05 18:49 | disposition home or self-care (01) ==
LOC: KA.ED 16:02
DX: G62.9 Polyneuropathy, unspecified (principal); R20.8 Other disturbances of skin sensation; R25.1 Tremor, unspecified; Z88.8 Allergy status to other drugs, medicaments and biological substances; Z79.01 Long term (current) use of anticoagulants; Z79.82 Long term (current) use of aspirin; Z79.899 Other long term (current) drug therapy
CPT/HCPCS: 36415; 71046; 80053; 81003; 85025; 99283; 99284